=== PATIENT | female | born 1970 | race Caucasian/White ===

== ENCOUNTER 2024-02-28 12:10 | Emergency (ER) | payer BC ==
[~2024-02-28] VITALS: Ht 152.4 cm; Wt 90.7 kg
[2024-02-28 12:13] VITALS: BP 141/86; PULSE 116; RESP 18; TEMP 98; O2SAT 99
[2024-02-28 14:14] LABS: BASOPHILS % (AUTO) 0.2 % (0.0-2.0); EOSINOPHILS % (AUTO) 0.3 % (0.0-4.0); HEMATOCRIT 41.5 % (36-48); HEMOGLOBIN 13.9 g/dL (12.0-16.0); LYMPHOCYTES # (AUTO) 1.2 K/uL (2.5-16.5); LYMPHOCYTES % (AUTO) 12.3 % (20.5-51.1); MEAN CORPUSCULAR HEMOGLOBIN 30 pg (27-31); MEAN CORPUSCULAR HGB CONC 34 g/dL (33-37); MONOCYTES # (AUTO) 0.4 K/uL (0.8-1.0); MONOCYTES % (AUTO) 3.8 % (1.7-9.3); NEUTROPHILS # (AUTO) 8.4 K/uL (1.8-7.7); NEUTROPHILS % (AUTO) 83.4 % (42.2-75.2); PLATELET COUNT (AUTO) 345 K/uL (140-450); RED BLOOD CELL COUNT(AUTO) 4.66 MIL/uL (4.20-5.40); RED CELL DISTRIBUTION WIDTH 15.4 % (11.6-13.7); WHITE BLOOD COUNT (AUTO) 10.1 K/uL (4.8-10.8)
[2024-02-28] MEDS: ACETAMINOPHEN 100 ML IV ONE (14:22)
[2024-02-28] MEDS: NACL 0.9% 1,000 ML IV ONE (14:23)
[2024-02-28 14:24] LABS: ANION GAP 13.5 (8-16); CALCIUM 9.4 mg/dL (8.5-10.1); CARBON DIOXIDE 29.2 mmol/L (21-32); CREATININE 0.7 mg/dL (0.6-1.3); POTASSIUM 4.7 mmol/L (3.5-5.1)
[2024-02-28] MEDS ORDERED: ONDANSETRON 4 MG/2 ML VIAL ONE (14:24)
[2024-02-28] MEDS: ONDANSETRON 4 MG/2 ML VIAL IVP ONE (14:24)
[2024-02-28 14:33] LABS: ALANINE AMINOTRANSFERASE 48 U/L (12-78); ALBUMIN 3.7 g/dL (3.4-5.0); ALKALINE PHOSPHATASE 101 U/L (50-136); ASPARTATE AMINOTRANSFERASE 35 U/L (15-37); LIPASE 33 U/L (16-77); TOTAL BILIRUBIN 0.4 mg/dL (0.0-1.0); TOTAL PROTEIN, SERUM 8.6 g/dL (6.4-8.2)
[2024-02-28] MEDS ORDERED: IBUP-2218 PO (15:57)
[2024-02-28] MEDS ORDERED: ONDA-188 SL (15:57)
[2024-02-28] MEDS ORDERED: ACET500T99 PO (15:57)
[2024-02-28 16:02] VITALS: BP 141/86; PULSE 116; RESP 18; TEMP 98; O2SAT 99
== END 2024-02-28 16:02 | disposition home or self-care (01) ==
LOC: MED 12:10
DX: R51.9 Headache, unspecified (principal); R11.0 Nausea; R53.1 Weakness; R03.0 Elevated blood-pressure reading, without diagnosis of hypertension; Z79.899 Other long term (current) drug therapy
CPT/HCPCS: 36415; 70450; 80048; 80076; 83690; 84484; 85025; 93005; 96361; 96374; 96375; 99285; J2405; J7030